=== PATIENT | male | born 1940 | race Caucasian/White ===

== ENCOUNTER 2018-10-18 09:40 | Emergency (ER) | payer MEDICARE ==
[2018-10-18] MEDS ORDERED: Diltiazem DRIP* 100 MG/100 ML ADDV.BAG IVPB ONE (10:09)
[2018-10-18] MEDS ORDERED: Diltiazem IV* 5 MG/ML 5 ML VIAL (for loading dose/IV Push) (25 MG) IV SLOW PU ONE (10:09)
--- NOTE | 2018-10-18 10:24 | ED ---
Palpitations / Dysrhythmia - HPI Summary HPI Summary: A 78 y/o male presents to [facility] with a chief complaint of having an elevated heart rate of [address] Hayes recommended that the patient come to the ED. At triage the patient rated his pain as a 0/10 in severity. The patient also states that his legs are swollen but it doesnt bother him much. He also c/ o SOB at night. He claims that sitting upright alleviates his pain. He takes bloodthinners for 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 Vital signs while in room HR: 127, O2 Sat: 97. - History of Current Complaint Chief Complaint: EDDysrhythmPalp Hx Obtained From: Patient Onset/Duration: Sudden Onset, Lasting Hours, Still Present Timing: Constant Severity Initially: Mild Severity Currently: Mild Character: Fast, Irregular Aggravating: Nothing Alleviating: Other - sitting upright Associated Signs & Symptoms: Negative - fever, Shortness of Breath - Allergy/Home Medications Allergies/Adverse Reactions: Allergies Allergy/AdvReac Type Severity Reaction Status Date / Time No Known Allergies Allergy Verified 10/18/18 09:47 Home Medications: Home Medications Metoprolol Succinate 50 mg PO BID 10/18/18 [History Confirmed 10/18/18] Pravastatin Sodium 20 mg PO BEDTIME 10/18/18 [History Confirmed 10/18/18] Warfarin Sodium 3.75 mg PO DAILY 10/18/18 [History Confirmed 10/18/18] Warfarin Sodium 7.5 mg PO DAILY 10/18/18 [History Confirmed 10/18/18] PMH/Surg Hx/FS Hx/Imm Hx Cardiovascular History: Reports: Hx Atrial Fibrillation Musculoskeletal History: Denies: Hx Rheumatoid Arthritis Sensory History: Denies: Hx Deafness - Surgical History Surgery Procedure, Year, and Place: none reported Infectious Disease History: Yes Infectious Disease History: Denies: Traveled Outside the [place] in Last 30 Days - Family History Known Family History: Positive: Other - Parkinson's - father - Social History Alcohol Use: Occasionally Substance Use Type: Reports: None Smoking Status (MU): Former Smoker Review of Systems Negative: Fever Positive: 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 Negative: Chest Pain Positive: Shortness Of Breath - at night Positive: Edema All Other Systems Reviewed And Are Negative: Yes Physical Exam - Summary Physical Exam Summary: Appearance: The patient is well-nourished in no acute distress and in no acute pain. Skin: The skin is warm and dry and skin color reflects adequate perfusion. HEENT: The head is normocephalic and atraumatic. The pupils are equal and reactive. The conjunctivae are clear and without drainage. Nares are patent and without drainage. Mouth reveals moist mucous membranes and the throat is without erythema and exudate. The external ears are intact. The ear canals are patent and without drainage. The tympanic membranes are intact. Neck: The neck is supple with full range of motion and non-tender. There are no carotid bruits. Mild JVD no HJR. Respiratory: Chest is non-tender. Lungs are clear to auscultation and breath sounds are symmetrical and equal. Cardiovascular: Heart is tachycardic and irregularly irregular. There is no murmur or rub auscultated. There is no peripheral edema and pulses are symmetrical and equal. Abdomen: The abdomen is soft and non-tender. There are normal bowel sounds heard in all four quadrants and there is no organomegaly palpated. Musculoskeletal: There is no back tenderness noted. Extremities are non-tender with full range of motion. There is good capillary refill. Pitting edema right leg Neurological: Patient is alert and oriented to person, place and time. The patient has symmetrical motor strength in all four extremities. Cranial nerves are grossly intact. Deep tendon reflexes are symmetrical and equal in all four extremities. Psychiatric: The patient has an appropriate affect and does not exhibit any anxiety or depression. Triage Information Reviewed: Yes Vital Signs On Initial Exam: Initial Vitals Temp Pulse Resp BP Pulse Ox 98.4 F 135 18 132/103 97 10/18/18 09:45 10/18/18 09:45 10/18/18 09:45 10/18/18 09:45 10/18/18 09:45 Vital Signs Reviewed: Yes Diagnostics - Vital Signs Vital Signs Temp Pulse Resp BP Pulse Ox 10/18/18 09:45 98.4 F 135 18 132/103 97 - Laboratory Result Diagrams: 10/18/18 10:46 10/18/18 10:46 Lab Statement: Any lab studies that have been ordered have been reviewed, and results considered in the medical decision making process. - EKG 09:51 Cardiac Rate: Other Rate - Atrial fibrillation at 120 bpm EKG Rhythm: Atrial Fibrillation Summary of EKG Findings: Atrial fibrillation at 120 bpm with RVR. Course/Dx - Course Course Of Treatment: Mr. Stack went to see his PCP today because he is been having a racing heart and shortness of breath. He has a long history of atrial fibrillation is on Coumadin but normally does not have an issue with shortness of breath. This been going on a couple of days now. On arrival here was placed on a monitor and noted to be in atrial fibrillation with rapid ventricular response in the 140s. He was nontoxic in appearance and clinically did not look like he was in fluid overload. He was given Cardizem with good response and placed on a drip while labs were obtained. The hospitalist service was asked to admit him. The Dr. Cool consulted and felt that he could be weaned off the Cardizem and given extra Lopressor. If he remained in a controlled rate he could be discharged. He was no longer complaining of shortness of breath when the rate was slowed down. He was successfully weaned off however he continued to get tachycardic if we walked him around. Immediately after lying back down in bed he would control his rate again. Orthostatics were performed and he was mildly orthostatic. I recommended fluids IV but the hospitalist was against it. They felt that he was safe for discharge as he was and the patient felt comfortable doing so. He is to follow closely with Dr. Carroll and to increase his Lopressor dose by half. - Diagnoses Provider Diagnoses: Atrial fibrillation with RVR - Physician Notifications Discussed Care Of Patient With: Gisel Cool Time Discussed With Above Provider: 12:36 Instructed by Provider To: MD Will See In ED - Critical Care Time Critical Care Time: 30-74 min Discharge - Sign-Out/Discharge Documenting (check all that apply): Patient Departure - DC Patient Received Moderate/Deep Sedation with Procedure: No - Discharge Plan Condition: Stable Disposition: HOME Patient Education Materials: A-fib (Atrial Fibrillation) (DC) Referrals: Jason Hayes MD [Primary Care Provider] - (2-3 days) Amrik Carroll MD [Medical Doctor] - Additional Instructions: Follow up with Dr. Carroll. Return to the ED if you experience any new or worsening symptoms. Take 1 1/2 Metoprolol instead of 1. - Billing Disposition and Condition Condition: STABLE Disposition: Home - Attestation Statements Document Initiated by Scribe: Yes Documenting Scribe: Dwain Erazo Provider For Whom Scribe is Documenting (Include Credential): Rishi Akhtar MD Scribe Attestation: I, Dwain Erazo, scribed for Rishi Akhtar MD on 10/19/18 at 1301. Scribe Documentation Reviewed: Yes Provider Attestation: The documentation as recorded by the scribe, Dwain Erazo accurately reflects the service I personally performed and the decisions made by me, Rishi Akhtar MD Status of Scribe Document: Viewed Consult Consult: At 17:00 - Discussed case with Dr. Cool, hospitalist, who recommended discharge.
[2018-10-18 10:56] LABS: ABS Basophils 0.1 10^3/ul (0-0.2); ABS Eosinophils 0.2 10^3/ul (0-0.6); ABS Lymphocytes 1.2 10^3/ul (1.0-4.8); ABS Monocytes 0.7 10^3/ul (0-0.8); ABS Neutrophils 3.9 10^3/ul (1.5-7.7); ABS Nucleated RBC 0 10^3/ul; Eosinophil % 2.5 %; Hematocrit 40 % (36-46); Hemoglobin 12.8 g/dL (14.0-18.0); Lymphocyte % 19.7 %; Mean Corpuscular HGB Conc 33 g/dL (31-36); Mean Corpuscular Hemoglobin 29 pg (27-31); Mean Corpuscular Volume 90 fL (80-94); Mean Platelet Volume 8.1 fL (7.4-10.4); Nucleated Red Blood Cells % 0; Platelet Count 158 10^3/uL (150-450); Red Blood Count 4.39 10^6 /uL (4.18-5.48); Red Cell Distribution Width 15 % (10.5-15)
[2018-10-18] MEDS ORDERED: Diltiazem IV VIAL* 125 MG in NS 0.9% 100 ML* 100 ML IVPB ONE (11:00)
[2018-10-18 11:03] LABS: INR 1.93 (0.77-1.02)
[2018-10-18 11:19] LABS: Troponin I 0.02 ng/mL (<0.04)
[2018-10-18 11:25] LABS: Albumin 4.3 g/dL (3.2-5.2); Albumin/Globulin Ratio 1.6 (1-3); BUN/Creatinine Ratio 27.3 (8-20); Calcium 9.1 mg/dL (8.6-10.3); EGFR African American 88.2 (>60); EGFR Non-African American 72.9 (>60); Globulin 2.7 g/dL (2-4); Magnesium 2.1 mg/dL (1.9-2.7); Potassium 4.6 mmol/L (3.5-5.0)
[2018-10-18 11:43] LABS: TSH (Thyroid Stimulating Horm) 4.32 mcIU/mL (0.34-5.60)
[2018-10-18] MEDS ORDERED: Metoprolol Succinate XL TAB* 50 MG PO ONE (14:21)
[2018-10-18] MEDS ORDERED: Furosemide TAB* 40 MG PO ONE (14:22)
[2018-10-18] MEDS ORDERED: NS 0.9% 1000 ML** 1,000 ML IV ONE (16:28)
[2018-10-18 17:25] VITALS: BP 142/95
--- NOTE | 2018-10-20 04:42 | CONS ---
[facility] MEDICINE CONSULTATION REPORT: DATE OF CONSULT: 10/18/18 - EMERGENCY DEPT PROVIDER: Nydia Wilder NP. ATTENDING PHYSICIAN: Dr. Akhtar in the emergency room. CONSULTING PHYSICIAN: Dr. Gisel Cool (dictated by Nydia Wilder NP). REASON FOR CONSULT: Palpitations. HISTORY OF PRESENT ILLNESS: Mr. Stack is a 78-year-old male with a past medical history significant for atrial fibrillation, BPH, and hypertension, who presented to the emergency room with complaints of shortness of breath and palpitations x1 week that was progressively getting worse. The patient reports that he felt short of breath when lying in bed and he was up most of the night and only able to sleep a few hours. He does report that he tried sleeping on 2 pillows but was unable to due to the shortness of breath, so he would sleep for a few hours in his bed and then get up and sleep in the chair or on the couch for the rest of the night due to his increased shortness of breath. The patient reports that he also felt like his heart was racing and had a heart rate of 137 at home, and so his doctor Dr. Hayes recommended that he present to the emergency room for further evaluation. PAST MEDICAL HISTORY: Significant for atrial fibrillation, BPH, hypertension. PAST SURGICAL HISTORY: Hemorrhoidectomy. MEDICATIONS: Home medications: 1. Metoprolol 50 mg p.o. b.i.d. 2. Pravastatin 20 mg p.o. at bedtime. 3. Warfarin 7.5 mg 3 days a week. 4. Warfarin 3.75 mg 4 days a week. ALLERGIES: No known drug allergies. FAMILY HISTORY: Mother with a history of unknown cardiac issues. No reported history of diabetes. Father with a history of lymphoma. SOCIAL HISTORY: The patient quit smoking. His lifetime smoking was approximately 10 years. He smoked half a pack to three-quarters of a pack a day. He does report occasional alcohol use. Denies any illicit drug use. He is retired. He is . Surrogate decision maker in the event he is unable to make his own decisions is his . He is a full code. REVIEW OF SYSTEMS: He denies any fever, chest pain, or edema. He denies any cough or hemoptysis. He does report shortness of breath, worse with lying down. He also reports nocturnal dyspnea. He denies any weight gain. Denies any nausea, vomiting, diarrhea, abdominal pain, hematuria, dysuria, focal weakness, or sensory loss. He denies any visual complaints, dysphagia, arthralgias, myalgias, rashes, lesions, psychosis, or anxiety. PHYSICAL EXAM: General: At this time, Mr. Stack is resting comfortably on the stretcher. He is in no acute distress. He is alert and oriented x3. Speech is clear. HEENT: Head is atraumatic, normocephalic. Eyes: EOMs are intact. Sclerae anicteric and not pale. Oral mucosa appears to be moist. Neck is supple. There is no JVD. Lungs are diminished in the bases bilaterally. No wheezes, rales, or rhonchi. Cardiac: S1, S2. Irregular rate and rhythm. No murmurs, rubs, or gallops. Abdomen: Soft and nontender. Bowel sounds are present x4. Extremities: He has some mild 1+ pitting edema noted to his bilateral lower extremities. Neurologic: He is awake, alert, and oriented x3. His speech is clear. Thought processes are intact. There are no gross focal deficits noted. Skin is intact. DIAGNOSTIC STUDIES/LAB DATA: WBCs are 6.0, RBCs 4.39, hemoglobin 12.8, hematocrit 40, platelet count 158. INR was 1.93. Sodium 136, potassium 4.6, chloride 104, carbon dioxide was 25, anion gap 7, BUN was 27, creatinine 0.99. Glucose 87, lactic acid was 1.1, calcium 9.1, magnesium 2.1, bilirubin is 1.0. ASTs were 46, ALTs were 40, alkaline phosphatase was 181. Troponin 0.02. BNP was 1079. TSH was 4.32. The patient had a chest x-ray, radiologist Impression: COPD, small right pleural effusion. He had an electrocardiogram which showed atrial fibrillation and a rate of 120 on admission. IMPRESSION AND PLAN: Mr. Stack is a 78-year-old male with past medical history significant for hyperlipidemia, hypertension, BPH, high cholesterol, and atrial fibrillation, who presented to the emergency room with complaints of palpitations and shortness of breath, found to be in rapid 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 PLAN/RECOMMENDATIONS: Our recommendations are as follows: 1. Atrial fibrillation with rapid ventricular response. The patient did have a Cardizem bolus and Cardizem IV drip in the emergency room. We did get him an extra dose of metoprolol 25 mg. I would recommend that we increase his metoprolol dosing to 75 mg p.o. b.i.d. He should follow up with his primary care provider and Cardiology within 1 week for further recommendations on rate control for his 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 2. Hyperlipidemia. He should continue on pravastatin as previously prescribed. 3. Hypertension. He should continue on metoprolol as prescribed. 4. Atrial fibrillation. The patient should continue on warfarin as previously prescribed. 5. Mild lower extremity edema. The patient did receive 40 mg of Lasix in the emergency room. The patient was instructed to return to the emergency room for any chest pain, shortness of breath, any other concerning symptoms, and his verbalized understanding. I have discussed this with my attending Dr. Gisel Cool. She is in agreement with my plan. I have discussed this with Dr. Akhtar, who will discharge the patient from the emergency room. 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 NYDIA WILDER, PETE [id number]/[facility] #: [id number] VIANEY
== END 2018-10-18 17:24 | disposition home or self-care (01) ==
LOC: ED 09:40
DX: I48.0 Paroxysmal atrial fibrillation (principal); Z79.01 Long term (current) use of anticoagulants; J44.9 Chronic obstructive pulmonary disease, unspecified; J90 Pleural effusion, not elsewhere classified; R06.02 Shortness of breath; R60.0 Localized edema; E78.5 Hyperlipidemia, unspecified; I10 Essential (primary) hypertension; N40.0 Benign prostatic hyperplasia without lower urinary tract symptoms; Z87.891 Personal history of nicotine dependence
CPT/HCPCS: 36415; 71046; 80053; 83605; 83735; 83880; 84443; 84484; 85025; 85610; 93005; 96374; 96375; 99283; A9270-GY

== ENCOUNTER 2019-09-12 11:20 | Emergency (ER) | payer MEDICARE ==
--- OUTSIDE RECORDS SUMMARY | 2019-09-12 11:44 | XMS REPORT | Summary of Care ---
:1940 Author Organization [facility] Address [address] [place] [address] Care Team Providers Name Role Phone Jason Hayes MD Primary Care Provider Reason for Visit Reason Comments Follow-up Encounter Details Date Type Department Care Team Description 08/05/2019 Office Visit Hematology Oncology Coco Mcdaniel Renal carcinoma, right [address] [facility] GERMÁN Murphy (Primary Dx) [place], [place] [address] [facility] [address] [place], [place] [phone] [id number] [phone] Allergies Active Allergy Reactions Severity Noted Date Comments Dipyridamole Rash Low 06/18/2019 documented as of this encounter (statuses as of 08/06/2019) Medications Medication Sig Dispensed Refills Start Date End Date Status Warfarin Sodium 7.5 Take 7.5 mg by 0 Active MG Oral Tablet mouth Takes 7.5mg (COUMADIN) Monday and and every other day he takes a half a tablet Pravastatin Sodium 20 Take 20 mg by mouth 0 04/11/2019 Active MG Oral Tablet daily (PRAVACHOL) Metoprolol Succinate TAKE 2 TABLETS BY 0 05/27/2019 Active ER 50 MG Oral Tablet MOUTH TWICE DAILY Extended Release 24 Hour (TOPROL-XL) Digoxin 125 MCG Oral TAKE 1 TABLET BY 0 05/09/2019 Active Tablet (LANOXIN) MOUTH ON Monday AND MONDAY. TAKE 2 TABLETS ON Monday AND MONDAY predniSONE 10 MG Oral TAKE 4 TABLETS BY 0 03/11/2019 Active Tablet (DELTASONE) MOUTH ONCE DAILY FOR 2 DAYS THEN 3 TABS DAILY Multiple Take by mouth daily 0 Active Vitamins-Minerals (VISION-RENEE PRESERVE PO) Furosemide 20 MG Oral Take 20 mg by mouth daily 1.5 pills on Monday, Monday and Monday 0 Active Tablet (LASIX) 1 pill on , , Monday and Monday Latanoprost 0.005 % 1 drop nightly 0 Active Ophthalmic Solution (XALATAN) documented as of this encounter (statuses as of 08/06/2019) Active Problems Problem Noted Date Renal carcinoma, right Cancer Staging: Clinical: Stage IV (cT1b, cNX, cM1) - Signed by Brandon Titus DO on 07/19/2019 documented as of this encounter (statuses as of 08/06/2019) Social History Tobacco Use Types Packs/Day Years Used Date Former Smoker 0 Quit: 06/18/1970 Smokeless Tobacco: Never Used Alcohol Use Drinks/Week oz/Week Comments Yes socially Sex Assigned at Date Recorded Not on file Job Start Date Occupation Industry Not on file Not on file Not on file Travel History Travel Start Travel End No recent travel history available. documented as of this encounter Last Filed Vital Signs Vital Sign Reading Time Taken Comments Blood Pressure 124/71 08/05/2019 2:28 PM EST Pulse 64 08/05/2019 2:28 PM EST Temperature 36.9 08/05/2019 2:28 PM EST C (98.4 F) Respiratory Rate 16 08/05/2019 2:28 PM EST Oxygen Saturation 95% 08/05/2019 2:28 PM EST Inhaled Oxygen Concentration - - Weight 83.1 kg (183 lb 3.2 oz) 08/05/2019 10:29 AM EST Height - - Body Mass Index 27.86 07/11/2019 7:00 AM EST documented in this encounter Progress Notes Coco Mcdaniel PA - 08/05/2019 10:15 AM EST Hematology/Oncology Follow Up Note Diagnosis: 1. Renal carcinoma, right Date of Cancer Diagnosis: 07/11/19 Cancer Stage Renal carcinoma, right, Clinical: Stage IV (cT1b, cNX, cM1) Past Treatment: None Current Treatment: Treatment Goal: Palliative Plan Name: OP ADVANCED RENAL CELL OR COLORECTAL (MSI) NIVOLUMAB IPILIMUMAB Status: Active Start Date: 08/05/2019 End Date: 08/03/2020 (Planned) Provider: Leah Reyna MD Chemotherapy: ipilimumab (YERVOY) 83 mg in sodium chloride 0.9 % chemo infusion , 1 mg/kg = 83 mg, Intravenous, Once, 1 of 4 cycles Administration: 83 mg (08/05/2019) nivolumab (OPDIVO) 249 mg in sodium chloride 0.9 % 100 mL chemo infusion, 3 mg/ kg = 249 mg, Intravenous, Once, 1 of 25 cycles Administration: 249 mg (08/05/2019) ECOG Performance Status: 0- Fully active, able to carry on all pre-disease performance without restriction Oncologic History: Oncologic History Aguilar Stack is a 79 y.o. male who was referred by Dr. Rodriguez to discuss systemic management of newly diagnosed stage IV renal cell carcinoma. The patient has a history of polymyalgia rheumatica and has been on long-term prednisone therapy. His publications manager ordered an abdominal ultrasound to assess his liver at which time a right renal mass was observed. The patient has not had any weight loss or abdominal pain or other concerning systemic symptoms. A CT of the chest, abdomen, and pelvis was performed, which identified mediastinal lung nodules and adenopathies suspicious for metastatic disease. The patient's right renal mass measures 5.6 x 4 x 5.6 on MRI from 06/26/2019, and there was some initial concern of a right renal vein thrombosis, but this is not the case. He has bilateral adrenal metastases. The patient is in good physical condition and has an ECOG score of a 0 and hikes in his backyard. He takes warfarin daily for chronic 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 The rest of his medical problems and associated medications are in the electronic medical record. He met with Dr. Reyna on 07/19/19 to discuss in detail the different options available for treatment of intermediate risk De Stephan metastatic renal carcinoma. We provided him information on the COSMIC trial assess the utility of Cabozantonib added to Ipi/Nivo. The patientwas not interested in pursuing additional testing to assessing eligibility for the trial and it would require he transition from Coumadin to LMWH. He has elected to proceed with first line Ipilimumab and Nivolumab for intermediate risk RCC. We discussed the risks vs benefits of pursuing treatment with immunotherapy. Interim History: Patient presents today for cycle 1. He has no concerns or complaints today. He is feeling fine. Denies any pain, fevers, chills, recent cold like symptoms, CP , SOB, cough, abdominal pain, n/v/d, urinary sx or rashes. Subjective: Past Medical History: Diagnosis Date Arrhythmia Arthritis Atrial fibrillation, chronic Cataract Glaucoma Hyperlipidemia Hypertension Night vision loss PMR (polymyalgia rheumatica) Renal mass Family and Social History Aguilar Stack family history includes Other in his mother; Parkinsonism in his father. He reports that he quit smoking about 49 years ago. He smoked 0.00 packs per day. He has never used smokeless tobacco. He reports current alcohol use. He reports that he does not use drugs. Medications and Allergies Allergies Allergen Reactions Dipyridamole Rash Current Outpatient Medications on File Prior to Visit Medication Sig Dispense Refill Digoxin 125 MCG Oral Tablet (LANOXIN) TAKE 1 TABLET BY MOUTH ON Monday AND MONDAY. TAKE 2 TABLETS ON Monday AND MONDAY Furosemide 20 MG Oral Tablet (LASIX) Take 20 mg by mouth daily 1.5 pills on Monday, Mondayand Monday 1 pill on , , Monday and Monday Latanoprost 0.005 % Ophthalmic Solution (XALATAN) 1 drop nightly Metoprolol Succinate ER 50 MG Oral Tablet Extended Release 24 Hour ( TOPROL-XL) TAKE 2 TABLETSBY MOUTH TWICE DAILY Multiple Vitamins-Minerals (VISION-RENEE PRESERVE PO) Take by mouth daily Pravastatin Sodium 20 MG Oral Tablet (PRAVACHOL) Take 20 mg by mouth daily predniSONE 10 MG Oral Tablet (DELTASONE) TAKE 4 TABLETS BY MOUTH ONCE DAILY FOR 2 DAYS THEN 3TABS DAILY Warfarin Sodium 7.5 MG Oral Tablet (COUMADIN) Take 7.5 mg by mouth Takes 7.5mg Monday and and every other day he takes a half a tablet No current facility-administered medications on file prior to visit. Review of Systems Constitutional: Negative for activity change, appetite change, chills, diaphoresis, fatigue and fever. HENT: Negative for congestion, ear pain, postnasal drip, rhinorrhea and sore throat. Eyes: Negative for photophobia, pain, redness and visual disturbance. Respiratory: Negative for cough, shortness of breath, wheezing and stridor. Cardiovascular: Negative for chest pain, palpitations and leg swelling. Gastrointestinal: Negative for abdominal pain, blood in stool, constipation, diarrhea, nausea and vomiting. Genitourinary: Negative for dysuria, frequency, hematuria and urgency. Musculoskeletal: Negative for back pain, gait problem and neck pain. Skin: Negative for color change and rash. Neurological: Negative for dizziness, syncope, weakness, light-headedness, numbness and headaches. Objective: Vitals: Vitals - 1 value per visit 07/11/2019 07/19/2019 08/05/2019 SYSTOLIC 131 157 124 DIASTOLIC 73 91 71 PULSE 78 85 64 TEMPERATURE 97.7 97.4 98.4 RESPIRATIONS 17 16 16 Weight (kg) 79.379 kg 82.827 kg 83.099 kg HEIGHT 172.7 cm - - SPO2 96 97 95 BODY MASS INDEX 26.61 kg/m2 27.76 kg/m2 27.86 kg/m2 PAIN SCALE - SCORE 0 0 0 Physical Exam Vitals signs reviewed. Constitutional: General: He is not in acute distress. Appearance: Normal appearance. HENT: Head: Normocephalic and atraumatic. Mouth/Throat: Mouth: Mucous membranes are moist. Eyes: General: No scleral icterus. Extraocular Movements: Extraocular movements intact. Pupils: Pupils are equal, round, and reactive to light. Neck: Musculoskeletal: Normal range of motion and neck supple. Cardiovascular: Rate and Rhythm: Normal rate and regular rhythm. Heart sounds: No murmur. Pulmonary: Effort: Pulmonary effort is normal. No respiratory distress. Breath sounds: Normal breath sounds. No stridor. No wheezing or rhonchi. Abdominal: General: Bowel sounds are normal. There is no distension. Palpations: Abdomen is soft. Tenderness: There is no abdominal tenderness. Musculoskeletal: Normal range of motion. Right lower leg: No edema. Left lower leg: No edema. Skin: General: Skin is warm and dry. Neurological: General: No focal deficit present. Mental Status: He is alert and oriented to person, place, and time. Psychiatric: Behavior: Behavior normal. Imaging IR Imaging Guided Needle, Drain Procedure Result Date: 07/12/2019 IMPRESSION: Successful and uncomplicated ultrasound guided right renal mass biopsy. MRI Brain 06/26/19: IMPRESSION: 1. No definite the enhancing lesion to suggest brain metastasis. 2. Focal hemosiderin deposition due to remote hemorrhage in the right occipital lobe. 3. No acute intracranial abnormality is seen. There are areas of nonspecific small vessel ischemic disease and generalized volume loss. MR angiogram with and without contrast of the abdomen and pelvis 06/26/19: IMPRESSION: No evidence of abdominal aortic aneurysm. 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 This is associated with a mass in the right renal pelvis which may be slightly increased in size since the previous study. This is consistent with the patient's history for renal cell carcinoma. No evidence of thrombus within the main right renal vein. Nonenhancing hemorrhagic or proteinaceous cyst on the left kidney. Bosniak 2. Left adrenal mass not significantly changed in size since previous study. However it it is not fullycharacterized on this study as described above. CT chest 06/05/19: IMRESSION: Given the clinical context the lung nodules and mediastinal lymphadenopathy are suspicious for metastatic disease. Bone Scan 06/25/19: IMPRESSION: No evidence of osteoblastic metastatic bone disease. Pathology Reviewed: Lab Results Component Value Date SURGPATH 07/11/2019 Collection Date: 07/11/2019 09:17 Received Date: 07/11/2019 09:52 Specimen(s) Received A: Right renal biopsy central B: Right peripheral renal biopsy Diagnosis A,B) KIDNEY, RIGHT CENTRAL AND RIGHT PERIPHERAL, BIOPSIES: RENAL CELL CARCINOMA (See Microscopic Description). Lab Review Office Visit on 08/05/2019 Component Date Value Ref Range Status White Blood Cell 08/05/2019 8.3 4 - 10 10*3/uL Final Red Blood Cell 08/05/2019 4.34* 4.6 - 6.1 10*6/uL Final Hemoglobin 08/05/2019 13.3* 13.5 - 18 g/dL Final Hematocrit 08/05/2019 40.5* 41 - 53 % Final Mean Cell Volume 08/05/2019 93.3 80 - 96 fL Final Mean Cell Hemoglobin 08/05/2019 30.7 27 - 33 pg Final Mean Cell Hgb Conc 08/05/2019 32.9 32.0 - 36.0 g/dL Final Red Cell Dist Width 08/05/2019 14.5 11.5 - 14.5 % Final Platelet Count 08/05/2019 168 150 - 400 10*3/uL Final Differential Type 08/05/2019 Automated Diff Final Neutrophil 08/05/2019 82 % Final Lymphocyte 08/05/2019 9 % Final Monocyte 08/05/2019 6 % Final Eosinophil 08/05/2019 2 % Final Basophil 08/05/2019 1 % Final Abs Neutrophil 08/05/2019 6.77 1.8 - 7.0 10*3/uL Final Abs Lymphocyte 08/05/2019 0.78* 1.2 - 4.0 10*3/uL Final Abs Monocyte 08/05/2019 0.51 0 - 0.8 10*3/uL Final Abs Eosinophil 08/05/2019 0.19 0 - 0.5 10*3/uL Final Abs Basophil 08/05/2019 0.05 0 - 0.2 10*3/uL Final Nucleated Red Blood Cells 08/05/2019 0 0 - 0 /100 Final Albumin 08/05/2019 4.1 3.5 - 5.2 g/dL Final Bilirubin, Total 08/05/2019 0.5 <1.2 mg/dL Final Calcium 08/05/2019 8.7* 8.8 - 10.2 mg/dL Final Chloride 08/05/2019 103 98 - 107 mmol/L Final Creatinine 08/05/2019 0.97 0.70 - 1.20 mg/dL Final Glucose 08/05/2019 98 70 - 140 mg/dL Final Alkaline Phosphatase 08/05/2019 85 40 - 129 U/L Final Potassium 08/05/2019 4.3 3.4 - 5.1 mmol/L Final Total Protein 08/05/2019 6.7 6.4 - 8.3 g/dL Final Sodium 08/05/2019 142 136 - 145 mmol/L Final AST/SGO 08/05/2019 24 <40 U/L Final Blood Urea Nitrogen 08/05/2019 21 8 - 23 mg/dL Final Osmolality, Adolfo 08/05/2019 296 275 - 300 mosm/kg Final BUN/Cre Ratio 08/05/2019 22 Final Bicarbonate 08/05/2019 24 22 - 29 mmol/L Final ALT/SGP 08/05/2019 23 <41 U/L Final Anion Gap 08/05/2019 15 8 - 15 mmol/L Final A/G Ratio 08/05/2019 1.6 Final GFR Non 2008 CDK-* 08/05/2019 eGFR is not calculated in patients <18 or >80 years of age. >60 mL/min/1.73m2 Final GFR 2008 CKD-EPI 08/05/2019 eGFR is not calculated in patients <18 or >80 years of age. >60 mL/min/1.73m2 Final TSH 08/05/2019 2.680 0.270 - 4.200 u[IU]/mL Final Tumor Markers No results found for: AFP, B2M, HCGTUT, BCRABLQUANT, CA153, LC3020, CGAGR, CA125 , CA199, CEA, ESTD, FSH, PSATOTAL, TG, CA153 Assessment: Aguilar Stack is a 79 year old male with stage IV RCC who presents today for cycle 1 Opdivo/yervoy. He has no concerns or complaints. 1. Stage IV RCC - CBC, CMP and TSH, stable. - Will proceed with cycle 1 - Adverse effects reviewed with patient and what to call office for in terms of symptoms - Patient verbally understands and agrees to do so. Plan: Aguilar Stack should return in 3 weeks for OV, labs and cycle 2 opdivo/ yervoy. Imaging prior to return to clinic?: no Labs on return to clinic? yes Medication changes? no Opioid induced constipation? no Meds reconciled? yes Referrals needed? There are no social work or other referral needs at this time. Patient was advised to notify office immediately with any concerns, worsening symptoms or new symptoms. Aware of 24 hour second shift supervisor service. All questions and concerns were answered and addressed to the best of my knowledge. Certain parts of this note may have been carried over from prior hematology/ oncology notes to maintain accuracy of patient pertinent medical history and continuity of care. The details were verified and edited as appropriate. GERMÁN Traylor Hematology/Oncology [phone] signed by GERMÁN Figueroa at 08/06/2019 4:30 PM ESTdocumented in this encounter Plan of Treatment Date Type Specialty Care Team Description 08/30/2019 Office Visit Hematology and Oncology Leah Reyna MD [address] [place] [address] 09/20/2019 Office Visit Hematology and Oncology Leah Reyna MD [address], [place] [id number] 10/11/2019 Office Visit Hematology and Oncology Leah Reyna MD [address] [place] [address] [phone] Health Maintenance Due Date Last Done Comments MMR Vaccines (1 of 1 - Standard 1940 series) Varicella Vaccines (1 of 2 - 1940 2-dose childhood series) DTaP,Tdap,and Td Vaccines (1 - 1946 Tdap) Zoster Vaccines (1 of 2) 1989 Pneumococcal Vaccine: 65+ Years (1 2004 of 2 - PCV13) Influenza Vaccine 04/30/2019 HIB Vaccines Aged Out No longer eligible based on patient's age to complete this topic Hepatitis A Vaccines Aged Out No longer eligible based on patient's age to complete this topic Hepatitis B Vaccines Aged Out No longer eligible based on patient's age to complete this topic IPV Vaccines Aged Out No longer eligible based on patient's age to complete this topic Pneumococcal Vaccine: Pediatrics Aged Out No longer eligible based on (0 to 5 Years) and At-Risk patient's age to complete this Patients (6 to 64 Years) topic documented as of this encounter Procedures Procedure Name Priority Date/Time Associated Comments Diagnosis CBC AND DIFFERENTIAL STAT 08/05/2019 10:34 Renal carcinoma, Results for this AM EST right procedure are in the results section. TSH Routine 08/05/2019 10:34 Renal carcinoma, Results for this AM EST right procedure are in the results section. COMPREHENSIVE STAT 08/05/2019 10:34 Renal carcinoma, Results for this METABOLIC PANEL AM EST right procedure are in the results section. documented in this encounter Results TSH (08/05/2019 10:34 AM EST) TSH 2.680 0.270 - 4.200 u[IU]/mL [facility] Pathology Specimen Plasma Performing Organization Address City/State/Zipcode Phone Number [facility] [address] [place] [address] [facility] [address] [place] [address] Pathology Comprehensive metabolic panel (08/05/2019 10:34 AM EST) Albumin 4.1 3.5 - 5.2 [facility] g/dL [facility] Path[facility] Bilirubin, Total 0.5 <1.2 mg/dL [facility] Pathology Calcium 8.7 (L) 8.8 - 10.2 [facility] mg/dL [facility] Chloride 103 98 - 107 [facility] mmol/L [facility] Pathology Creatinine 0.97 0.70 - 1.20 [facility] mg/dL [facility] Glucose 98 70 - 140 [facility] mg/dL [facility] Pathology Alkaline 85 40 - 129 U/L [facility] Phosphatase [facility] Potassium 4.3 3.4 - 5.1 [facility] mmol/L [facility] Pathology Total Protein 6.7 6.4 - 8.3 [facility] g/dL [facility] Pathology Sodium 142 136 - 145 [facility] mmol/L [facility] Pathology AST/SGO 24 <40 U/L [facility] Pathology Blood Urea Nitrogen 21 8 - 23 mg/dL [facility] Pathology Osmolality, Adolfo 296 275 - 300 [facility] mosm/kg [facility] Pathology BUN/Cre Ratio 22 [facility] Bicarbonate 24 22 - 29 [facility] mmol/L [facility] Pathology ALT/SGP 23 <41 U/L [facility]ology Anion Gap 15 8 - 15 mmol/L [facility]ology A/G Ratio 1.6 [facility] Pathology GFR Non eGFR is not >60 [facility] 2008 calculated in mL/min/1.73m2 [facility] CDK-EPI patients <18 or Pathology >80 years of age. GFR eGFR is not >60 [facility] 2008 calculated in mL/min/1.73m2 [facility] CKD-EPI patients <18 or Pathology >80 years of age. Specimen Plasma Performing Organization Address City/State/Zipcode Phone Number [facility] [address] [place] [address] [facility] [address] [place] [address] Pathology CBC and differential (08/05/2019 10:34 AM EST) White Blood Cell 8.3 4 - 10 [facility] 10*3/uL [facility] Pathology Red Blood Cell 4.34 (L) 4.6 - 6.1 [facility] 10*6/uL [facility] Pathology Hemoglobin 13.3 (L) 13.5 - 18 [facility] g/dL [facility] Pathology Hematocrit 40.5 (L) 41 - 53 % [facility] Mean Cell Volume 93.3 80 - 96 fL [facility] Mean Cell Hemoglobin 30.7 27 - 33 pg [facility] Mean Cell Hgb Conc 32.9 32.0 - 36.0 [facility] g/dL [facility] Pathology Red Cell Dist Width 14.5 11.5 - 14.5 % [facility] Platelet Count 168 150 - 400 [facility] 10*3/uL [facility] Pathology Differential Type Automated Diff [facility] Neutrophil 82 % [facility] Lymphocyte 9 % [facility] Monocyte 6 % [facility] Eosinophil 2 % [facility] Basophil 1 % [facility] Abs Neutrophil 6.77 1.8 - 7.0 [facility] 10*3/uL [facility] Abs Lymphocyte 0.78 (L) 1.2 - 4.0 [facility] 10*3/uL [facility] Abs Monocyte 0.51 0 - 0.8 [facility] 10*3/uL [facility] Abs Eosinophil 0.19 0 - 0.5 [facility] 10*3/uL [facility] Abs Basophil 0.05 0 - 0.2 [facility] 10*3/uL [facility] Nucleated Red Blood 0 0 - 0 [facility] Cells /100{WBCs} [facility] Specimen EDTA Whole Blood Performing Organization Address City/State/Zipcode Phone Number [facility] [address] [place] [address] [phone] [facility] [address] [place] [address] Pathology documented in this encounter Visit Diagnoses Diagnosis Renal carcinoma, right - Primary documented in this encounter Administered Medications Medication Order MAR Action Action Date Dose Rate Site ipilimumab (YERVOY) 83 mg in Rate/Dose Verify 08/05/2019 1:37 PM 100 mL/ hr sodium chloride 0.9 % chemo EST infusion 83 mg (rounded from 83.1 mg = 1 mg/kg 83.1 kg), Intravenous, Administer over 30 Minutes, Once, 08/05/19 at 1230, For 1 dose, Start 30 minutes after completion of Nivolumab. Administer via Taxol set. Flush with NS or D5. Final concentration 1-2 mg/mL., New Bag 08/05/2019 1:34 PM EST 83 mg 100 mL/hr nivolumab (OPDIVO) 249 mg in Rate/Dose Verify 08/05/2019 12:22 PM EST 200 mL/hr sodium chloride 0.9 % 100 mL chemo infusion 249 mg (rounded from 249.3 mg = 3 mg/kg 83.1 kg), Intravenous, Administer over 30 Minutes, Once, 08/05/19 at 1130, For 1 dose New Bag 08/05/2019 12:20 PM EST 249 mg 200 mL/hr documented in this encounter
--- OUTSIDE RECORDS SUMMARY | 2019-09-12 11:44 | XMS REPORT | Summary of Care ---
:1940 Author Organization [facility] Address [address] [place] [address] Care Team Providers Name Role Phone Jason Hayes MD Primary Care Provider Reason for Visit Reason Comments New Patient Renal carcinoma Encounter Details Date Type Department Care Team Description 07/19/2019 Office Visit Hematology Oncology Leah Reyna MD Renal carcinoma, right [address] [facility] [address] [facility] (Primary Dx) [place] [id number] Allergies Active Allergy Reactions Severity Noted Date Comments Dipyridamole Rash Low 06/18/2019 documented as of this encounter (statuses as of 07/23/2019) Medications Medication Sig Dispensed Refills Start Date End Date Status Warfarin Sodium 7.5 Take 7.5 mg by 0 Active MG Oral Tablet mouth (COUMADIN) Pravastatin Sodium 20 Take 20 mg by [...] pill on , , Monday and Monday documented as of this encounter (statuses as of 07/23/2019) Active Problems Problem Noted Date Renal carcinoma, right Cancer Staging: Clinical: Stage IV (cT1b, cNX, cM1) - Signed by Brandon Titus DO on 07/19/2019 documented as of this encounter (statuses as of 07/23/2019) Social History Tobacco Use Types Packs/Day Years [...] Sign Reading Time Taken Comments Blood Pressure 157/91 07/19/2019 11:29 took bp meds, new pt- AM EST told rn luna Pulse 85 07/19/2019 11:29 AM EST Temperature 36.3 07/19/2019 11:29 C (97.4 AM EST F) Respiratory Rate 16 07/19/2019 11:29 AM EST Oxygen Saturation 97% 07/19/2019 11:29 ra AM EST Inhaled Oxygen - - Concentration Weight 82.8 kg (182 lb 9.6 07/19/2019 11:29 oz) AM EST Height - - Body Mass Index 27.76 07/11/2019 7:00 AM EST documented in this encounter Progress Notes Leah Reyna MD - 07/19/2019 11:30 AM EST I saw and evaluated the patient Aguilar Stack with Dr. Titus. Discussed with him and agree with his findings and plans as written, along with any supplemental dictated and/or attending documentation in the patient record by myself. The treatment plan was discussed with the patient. Previous Oncologic History, Diagnosis and stage: June 05, 2019-CAT scan of the chest abdomen and pelvis revealed- LUNG: Multiple bilateral pulmonary nodules with fuels sales representative dominant 1.3 cm nodule at the suprahilar central aspect of the RIGHT upper lobe reference image 31. Biological Chemist 0.7 cm nodule at the anterior segment of the LEFT upper lobe reference image 36. Negative for pleural effusions. MEDIASTINUM / AXILLA: Extensive mediastinal and bilateral hilar lymphadenopathy. Biological Chemist 2.5 x 3.0 cm precarinal lymph node and 2.5 x 3.4 cm LEFT suprahilar lymph node. Biological Chemist 3.6 x 3.6 cm RIGHT infrahilar lymph node and 2.2 x 2.8 cm LEFT infrahilar lymph node. Negative for cardiomegaly or pericardial effusion. Mild atherosclerotic plaque at normal diameter abdominal aorta. 5.4 x 3.8 x 4.4 cm heterogeneously enhancing solid mass at the mid to superior pole of the RIGHT kidney. Strong suggestion of contiguous enhancing tumor thrombus extending from the RIGHT renal mass to the RIGHT renal vein and extending to the confluence with the IVC. June 18, 2019-evaluated by urology for the incidental finding of the 5.4 cm right renal mass with ? right renal vein tumor thrombus invasion June 25, 2019-bone scan showed no evidence of distant disease June 26, 2019-MRI of the brain is negative for metastasis June 26, 2019-MRI abdomen showed Right renal mass, no thrombus- there is a enhancing mass withinthe renal pelvis which extends exophytically from the posterior aspect of the right kidney. It measures 5.6 x 4 x 5.6 cm. This mass was present on the previous CT scan when it measured 6.1 x 3.6 x 4.6 cm- second mass versus a prominent lobulation of the primary lesion is present on the midpole of the right kidney measuring 2.5 x2.3 cm and demonstrates enhancement Case was discussed In the tumor board- and suggested that there is proceed July 11, 2019-right renal biopsy showed renal cell carcinoma, clear cell ECOG Performance Status: (1) Restricted in physically strenuous activity, ambulatory and able to do work of light nature Assessment/Plan- Aguilar is a 78-year-old male with a past medical history significant for hypertension, a true fibrillation on Coumadin and a new diagnosis of metastatic , 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 I met with him his daughter, his and his sister at length today at the office. We discussed about the various modalities and drug treatments over the course of the last 20 years for the treatment of metastatic and also carcinoma. I discussed about theSutent, followed by combination immunotherapy followed by immunotherapy with TK I and the clinical trial COSMIC - WHICH IS A RANDOMIZATION BUT IN COMBINATION IMMUNOTHERAPY WITH OR WITHOUT TKI. WE DISCUSSED in DETAILS ABOUT THE SIDE EFFECTS OF ALL THE TREATMENTS INVOLVED. WE GAVE THEM INFORMED CONSENT ABOUT THE COSMIC CLINICAL TRIAL. Patient is not interested in repeating the scans to be eligible for the clinical trial. He would like to proceed with the dual immunotherapy. We provided him the therapy teaching and consent today. He would like to start after the new year. I discussed in details about the side effects of the therapy as mentioned below. Patient's current issues of RCC is getting tt as above and additional work up as mentioned below arepursued. I personally reviewed relevant history pertinent labs, medicines, imaging ( CT, ultrasound). I personally reviewed the films and discussed with radiologist and old records from urology . Old records were requested. Adverse effects and risks of immunotherapy was discussed at length in layman terms including but notlimited to autoimmune conditions like colitis, thyroiditis, pneumonitis, adrenalitis, nephritis, hepatitis, rashes, and increased likelihood of infections which can even be serious and fatal rarely. Wereiterated once again the palliative intent of any future systemic therapy to ameliorate cancer related symptoms as well as prolong survival in setting of ultimately incurable disease. Formal chemo teaching completed and signed consent obtained at this visit. Chemotherapy consent- taken today for Ipi/Nivo Orders Placed This Encounter CBC and differential Standing Status: Future Number of Occurrences: 1 Standing Expiration Date: 01/18/2020 Comprehensive Metabolic Panel Standing Status: Future Number of Occurrences: 1 Standing Expiration Date: 01/19/2020 TSH Standing Status: Future Number of Occurrences: 1 Standing Expiration Date: 01/19/2020 Cortisol Standing Status: Future Number of Occurrences: 1 Standing Expiration Date: 01/18/2020 Lactate dehydrogenase Standing Status: Future Number of Occurrences: 1 Standing Expiration Date: 01/18/2020 I spent 60 minutes face to face with patient today, more than half of which was spent on counseling about diagnosis, coping with diagnosis, treatment plan, immunotherapy, side effects from it, other treatment options, palliative services referral, need for supportive measures during the treatment and coordination of care regarding the above assessment and plan. Informed patient if he develops any problems or issues prior to rtc then he should give our office acall in addition we have a 24 hour conditioner tumbler service. Patient was agreeable with plan of care. Also patient and patient did ask questions which were answered to their satisfaction and to the best of our knowledge. Leah Reyna MD Pager - Breast Surgeon Department of Hematology Oncology [facility] 07/19/2019 2:25 PM Brandon Jose, - 07/19/2019 11:30 AM EST [facility] Outpatient Clinic Note Patient Name: Aguilar Stack Date of : 1940 Medical Record: [id number] Primary Care Provider: Jason Hayes MD Subjective Reason for Visit: New Patient (Renal carcinoma) Diagnosis: Stage IV RCC; right Current Treatment: OP ADVANCED RENAL CELL OR COLORECTAL (MSI) NIVOLUMAB IPILIMUMAB Previous Treatment: none History of Illness: Aguilar Stack is a 78 y.o. male who was referred by Dr. Rodriguez to discuss systemic management of newly diagnosed stage IV renal cell carcinoma. The patient has a history of polymyalgia rheumatica and has been on long-term prednisone therapy. His incinerator attendant ordered an abdominal ultrasound to assess his [...] medications are in the electronic medical record. We discussed in detail the different options available for treatment of intermediate risk [place] metastatic renal carcinoma. Performance Status: ECO- Fully active, able to carry on all pre-disease performance without restriction Past Medical History: He has a past medical history of Arrhythmia, Arthritis, Atrial fibrillation, chronic, Cataract, Glaucoma, Hyperlipidemia, Hypertension, Night vision loss, and Renal mass. Past Surgical History: He has a past surgical history that includes Vasectomy (1971) and hemorroids. Allergies Allergen Reactions Dipyridamole Rash Home Medications Medication Sig Digoxin 125 MCG Oral Tablet (LANOXIN) TAKE 1 TABLET BY MOUTH ON Monday AND MONDAY. TAKE 2 TABLETS ON Monday AND MONDAY Furosemide 20 MG Oral Tablet (LASIX) Take 20 mg by mouth daily 1.5 pills on Monday, Monday and Monday 1 pill on , , Monday and Monday Metoprolol Succinate ER 50 MG Oral Tablet Extended Release 24 Hour (TOPROL-XL) TAKE 2 TABLETS BY MOUTH TWICE DAILY Multiple Vitamins-Minerals (VISION-RENEE PRESERVE PO) Take by mouth daily Pravastatin Sodium 20 MG Oral Tablet (PRAVACHOL) Take 20 mg by mouth daily predniSONE 10 MG Oral Tablet (DELTASONE) TAKE 4 TABLETS BY MOUTH ONCE DAILY FOR 2 DAYS THEN 3 TABS DAILY Warfarin Sodium 7.5 MG Oral Tablet (COUMADIN) Take 7.5 mg by mouth Social History: He reports that he quit smoking about 49 years ago. He smoked 0.00 packs per day. He has never used smokeless tobacco. He reports current alcohol use. He reports that he does not use drugs. Family History Problem Relation Age of Onset Parkinsonism Father Other Mother Lymphoma Review of Systems Constitutional: Negative for chills, fatigue, fever and unexpected weight change. HENT: Negative for hearing loss and nosebleeds. Eyes: Negative. Respiratory: Negative for chest tightness and shortness of breath. Cardiovascular: Negative for chest pain and leg swelling. Gastrointestinal: Negative for abdominal pain, blood in stool, diarrhea, nausea and vomiting. Endocrine: Negative. Genitourinary: Negative for dysuria and hematuria. Musculoskeletal: Negative for back pain. Skin: Negative. Neurological: Negative for dizziness and headaches. Psychiatric/Behavioral: Negative. All other systems reviewed and are negative. Objective Physical Examination: BP (!) 157/91 (BP Location: Right arm, Patient Position: Sitting, Cuff size: Regular) Comment: took bp meds, new pt- told rn luna | Pulse 85 | Temp 36.3 C (97.4 F) (Oral) | Resp 16 | Wt 82.8 kg (182 lb 9.6 oz) | SpO2 97% Comment: ra | BMI 27.76 kg/m Wt Readings from Last 3 Encounters: 07/19/19 82.8 kg (182 lb 9.6 oz) 07/11/19 79.4 kg (175 lb) 06/18/19 82.1 kg (181 lb) Physical Exam Vitals signs and nursing note reviewed. Constitutional: General: He is not in acute distress. Appearance: Normal appearance. He is not toxic-appearing. HENT: Head: Normocephalic and atraumatic. Right Ear: External ear normal. Left Ear: External ear normal. Nose: Nose normal. Mouth/Throat: Mouth: Mucous membranes are moist. Pharynx: Oropharynx is clear. No oropharyngeal exudate. Eyes: Extraocular Movements: Extraocular movements intact. Conjunctiva/sclera: Conjunctivae normal. Pupils: Pupils are equal, round, and reactive to light. Neck: Musculoskeletal: Normal range of motion. No muscular tenderness. Cardiovascular: Heart sounds: Normal heart sounds, S1 normal and S2 normal. Pulmonary: Effort: Pulmonary effort is normal. Breath sounds: Normal breath sounds. Abdominal: General: There is no distension. Palpations: Abdomen is soft. Tenderness: There is no abdominal tenderness. Skin: General: Skin is warm and dry. Capillary Refill: Capillary refill takes less than 2 seconds. Neurological: General: No focal deficit present. Mental Status: He is alert and oriented to person, place, and time. Psychiatric: Mood and Affect: Mood normal. Behavior: Behavior normal. Musculoskeletal: Normal range of motion. General: No signs of injury. Recent Labs: Lab Results Component Value Date WBC 7.0 07/19/2019 HGB 13.9 07/19/2019 MCV 93.9 07/19/2019 HCT 42.3 07/19/2019 PLT 190 07/19/2019 Lab Results Component Value Date NEUTROABS 5.76 07/19/2019 NEUTOPHILPCT 82 07/19/2019 LYMPHOPCT 12 07/19/2019 MONOPCT 5 07/19/2019 EOSPCT 0 07/19/2019 Lab Results Component Value Date NA 138 07/19/2019 K 4.3 07/19/2019 CL 101 07/19/2019 BICARBONATE 26 07/19/2019 BUN 19 07/19/2019 CREATININE 1.02 07/19/2019 GLUCOSE 109 07/19/2019 Lab Results Component Value Date CALCIUM 9.1 07/19/2019 Lab Results Component Value Date PROT 7.4 07/19/2019 ALBUMIN 4.6 07/19/2019 AST 23 07/19/2019 ALT 21 07/19/2019 TBILI 0.7 07/19/2019 ALKPHOS 98 07/19/2019 Lab Results Component Value Date INR 1.06 07/11/2019 PROP 14.2 07/11/2019 PTTP 31.8 07/11/2019 No results found for: IGG, IGA, IGM Lab Results Component Value Date LDH 246 (H) 07/19/2019 No results found for: PCTRETICAUTO, ABSRETIC, IRF No results found for: WBJHPTQH34, FOLATE, FERRITIN, IRON, TIBC, UIBC, FESA No results found for: AFP, B2M, HCGTUT, BCRABLQUANT, CA153, XC3249, CGAGR, CA125 , CA199, CEA, ESTD, FSH, PSATOTAL, TG, CA153 Relevant Data Reviewed: MRI Brain 06/26/19: IMPRESSION: 1. No definite the enhancing lesion to suggest brain metastasis. 2. Focal hemosiderin deposition due to remote hemorrhage in the right occipital lobe. 3. No acute intracranial abnormality is seen. There are areas of nonspecific small vessel ischemic disease and generalized volume loss. MR angiogram with and without contrast of the abdomen and pelvis 06/26/19: FINDINGS: Angiogram. Mild atherosclerotic changes are present in the abdominal aorta. However, thereis no evidence of an abdominal aortic aneurysm. The proximal abdominal aorta at the level of the celiac axis and SMA measures 2.5 x 2.5 cm. At the level of the renal arteries it measures 2.1 cm. The mid abdominal aorta measures 2 cm. At the level of the bifurcation it measures 1.6 cm. The bilateral common iliac as well as internal and external iliac arteries are normal in course and caliber. Both renal arteries are normal in caliber without evidence of strictures or aneurysms. However, there is a mass measuring 2.6 x 2.9 x 2.6 cm which enhances in the arterial and early venous phase and appears to be arising from the right renal vein, near the right renal hilum. 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 It is displacing the distal portion of the renal artery inferiorly. However, the right renal artery remains widely patent. This aneurysm previously measured 3.3 x 2.9 x 2.5 cm. In addition there is a enhancing mass within the renal pelvis which extends exophytically from the posterior aspect of the right kidney. It measures 5.6 x 4 x 5.6 cm. This mass was present on the previous CT scan when it measured 6.1 x 3.6 x 4.6 cm. It may be slightly increased in size since previousstudy. If this is consistent with the patient's history of a renal cell carcinoma. There is no definite evidence of main renal vein thrombus.. A second mass versus a prominent lobulation of the primary lesion is present on the midpole of the right kidney measuring 2.5 x2.3 cm and demonstrates enhancement. A 1.5 cm hemorrhagic or proteinaceous cyst is present on the lower pole of the left kidney. It does not demonstrate enhancement. Too small to characterize area of abnormal signal are present in the upper pole of the left kidney. The pancreas is suboptimally visualized and is suboptimally evaluated but appears grossly unremarkable. A left adrenal masses present measuring 2.5 x 2.2 cm it is not significantly changed compared to theprevious study. It is not fully characterized on this study since there was no in and out of phase sequence provided. The visualized liver and spleen are unremarkable. There is mild prominence of the common bile duct. The pancreatic duct is not dilated. There is no evidence of significant abdominal or pelvic lymphadenopathy. The visualized stomach and small bowel loops are unremarkable. The visualized colon is unremarkable. Evaluation of the pelvis is limited since there was no axial images provided. The limited images of the pelvis demonstrates the urinary bladder to be unremarkable. The bony structures are unremarkable. IMPRESSION: No evidence of abdominal aortic aneurysm. [...] study as described above. CT chest 06/05/19: CHEST REPORT: LUNG: Multiple bilateral pulmonary nodules with fuels sales representative dominant 1.3 cm nodule at the suprahilar central aspect of the RIGHT upper lobe reference image 31. Biological Chemist 0.7 cm nodule at the anterior segment of the LEFT upper lobe reference image 36. Negative for pleural effusions. MEDIASTINUM / AXILLA: Extensive mediastinal and bilateral hilar lymphadenopathy. Biological Chemist 2.5 x 3.0 cm precarinal lymph node and 2.5 x 3.4 cm LEFT suprahilar lymph node. Biological Chemist 3.6 x 3.6 cm RIGHT infrahilar lymph node and 2.2 x 2.8 cm LEFT infrahilar lymph node. Negative for cardiomegaly or pericardial effusion. Mild atherosclerotic plaque at normal diameter abdominal aorta. BONES: No suspicious osseous lesions of the thorax evident. SOFT TISSUE: Unremarkable superficial soft tissues. CHEST IMPRESSION: Given the clinical context the lung nodules [...] BIOPSIES: RENAL CELL CARCINOMA (See Microscopic Description). ASSESSMENT AND PLAN: 1. Renal carcinoma, right Various treatment modalities, goals of therapy, and disease course of RCC described to the patient and family in detail. We provided him information on the COSMIC trial assess the utility of Cabozantonib added to Ipi/Nivo. The patientwas not interested in pursuing additional testing to assessing eligibility for the trial and it would require he transition from Coumadin to LMWH He has elected to proceed with first line Ipilimumab and Nivolumab for intermediate risk RCC We discussed the risks vs benefits of pursuing treatment with immunotherapy. Quality Measures: Pain Level: None Nutrition/Appetite: Good GI Side-Effects: None Anxiety/Depression: Denies Code Status / ACP: Not addressed Next Appointment: Return in about 13 days (around 08/01/2019) for infusion only with nivo ipi. Pending Orders/Studies: N/A Orders Placed This Encounter CBC and differential Comprehensive Metabolic Panel TSH Cortisol Lactate dehydrogenase Plan discussed with: Leah Reyna MD, Attending Brandon Titus DO Hematology/Oncology Office: [phone] Pager: [phone] signed by Brandon Titus DO at 07/20/2019 10: 19 AM ESTdocumented in this encounter Plan of Treatment Date Type Specialty Care Team Description 08/05/2019 Office Visit Hematology and Oncology Coco Mcdaniel PA [address] [place] [address] 08/30/2019 Office Visit Hematology and Oncology Leah Reyna MD [address] [place] [address] Health Maintenance Due Date Last Done Comments [...] Associated Comments Diagnosis CBC AND DIFFERENTIAL STAT 07/19/2019 1:56 Renal carcinoma, Results for this PM EST right procedure are in the results section. TSH Routine 07/19/2019 1:56 Renal carcinoma, Results for this PM EST right procedure are in the results section. LACTATE DEHYDROGENASE STAT 07/19/2019 1:56 Renal carcinoma, Results for this PM EST right procedure are in the results section. CORTISOL Routine 07/19/2019 1:56 Renal carcinoma, Results for this PM EST right procedure are in the results section. COMPREHENSIVE Routine 07/19/2019 1:56 Renal carcinoma, Results for this METABOLIC PANEL PM EST right procedure are in the results section. documented in this encounter Results Lactate dehydrogenase (07/19/2019 1:56 PM EST) Lactate dehydrogenase 246 (H) 122 - 225 U/L [facility] Pathology Specimen Plasma Performing Organization Address City/[facility] Phone Number [facility] [address] [place] [address] [facility] [address] [place] [address] Pathology Cortisol (07/19/2019 1:56 PM EST) Cortisol 1.3 ug/dL [facility] Comment: [facility] Pathology Ref range for 6-10 am samples: 6.0-18.4 ug/dL Ref range for 4-8 pm samples: 2.7-10.5 ug/dL Ref range not established for other times. Specimen Plasma Performing Organization Address [facility] Cent[facility]ode Phone Number [facility] [address] [place] [address] [facility] [address] [place] [address] Pathology TSH (07/19/2019 1:56 PM EST) TSH 1.800 0.270 - 4.200 u[IU]/mL [facility] Pathology Specimen Plasma Performing Organization Address City/[facility] Cent[facility]ode Phone Number [facility] [address] [place] [address] [facility] [address] [place] [address] Pathology Comprehensive Metabolic Panel (07/19/2019 1:56 PM EST) Albumin 4.6 3.5 - 5.2 g/dL [facility] Pathology Bilirubin, Total 0.7 <1.2 mg/dL [facility] Pathology Calcium 9.1 8.8 - 10.2 mg/dL [facility] Pathology Chloride 101 98 - 107 mmol/L [facility] Pathology Creatinine 1.02 0.70 - 1.20 [facility] mg/dL [facility] Pathology Glucose 109 70 - 140 mg/dL [facility] Pathology Alkaline Phosphatase 98 40 - 129 U/L [facility] Pathology Potassium 4.3 3.4 - 5.1 mmol/L [facility] Pathology Total Protein 7.4 6.4 - 8.3 g/dL [facility] Pathology Sodium 138 136 - 145 mmol/L [facility] AST/SGO 23 <40 U/L [facility] Pathology Blood Urea Nitrogen 19 8 - 23 mg/dL [facility] Pathology Osmolality, Adolfo 289 275 - 300 [facility] mosm/kg [facility] BUN/Cre Ratio 19 [facility]ology Bicarbonate 26 22 - 29 mmol/L [facility] Pathology ALT/SGP 21 <41 U/L [facility] Pathology Anion Gap 11 8 - 15 mmol/L [facility] Pathology A/G Ratio 1.6 [facility] Pathology GFR Non 68 >60 [facility] [place] 2008 CDK-EPI mL/min/1.73m2 [facility] Pathology GFR 79 >60 [facility] 2009 CKD-EPI mL/min/1.73m2 [facility] Pathology Specimen Plasma Performing Organization Address City/[facility] Phone Number [facility] [address] [place] [address] [phone] [facility] [address] [place] [address] Pathology CBC and differential (07/19/2019 1:56 PM EST) White Blood Cell 7.0 4 - 10 [facility] 10*3/uL [facility] Pathology Red Blood Cell 4.50 (L) 4.6 - 6.1 [facility] 10*6/uL [facility] Hemoglobin 13.9 13.5 - 18 [facility] g/dL [facility] Pathology Hematocrit 42.3 41 - 53 % [facility]ology Mean Cell Volume 93.9 80 - 96 fL [facility] Pathology Mean Cell Hemoglobin 30.8 27 - 33 pg [facility] Pathology Mean Cell Hgb Conc 32.8 32.0 - 36.0 [facility] g/dL [facility] Pathology Red Cell Dist Width 14.0 11.5 - 14.5 % [facility] Pathology Platelet Count 190 150 - 400 [facility] 10*3/uL [facility] Differential Type Automated Diff [facility]ology Neutrophil 82 % [facility] Lymphocyte 12 % [facility] Monocyte 5 % [facility]ology Eosinophil 0 % [facility] Basophil 1 % [facility] Abs Neutrophil 5.76 1.8 - 7.0 [facility] 10*3/uL [facility] Pathology Abs Lymphocyte 0.82 (L) 1.2 - 4.0 [facility] 10*3/uL [facility]ology Abs Monocyte 0.32 0 - 0.8 [facility] 10*3/uL [facility]ology Abs Eosinophil 0.03 0 - 0.5 [facility] 10*3/uL [facility]ology Abs Basophil 0.04 0 - 0.2 [facility] 10*3/uL [facility]ology Nucleated Red Blood 0 0 - 0 [facility] Cells /100{WBCs} [facility] Pathology Specimen EDTA Whole Blood Performing Organization Address City/State/Zipcode Phone Number [facility] [address] [place] [address] [facility] [address] [place] [address] Pathology documented in this encounter Visit Diagnoses Diagnosis Renal carcinoma, right - Primary documented in this encounter"
--- NOTE | 2019-09-12 11:47 | ED ---
Abdominal Pain/Male - HPI Summary HPI Summary: Patient is an 79 y/o M presenting to the ED for a chief complaint of right flank abdominal pain that began the night of 09/11/19. The abdominal pain has improved since 09/11/19. No aggravating or alleviating factors are reported. Patient denies fever, nausea, or vomiting. PMHx is significant for polymyalgia rheumatica and right kidney cancer for which he is receiving immunotherapy, having completed 2 sessions at [facility]. PSHx is significant for hernia repair, but any abdominal surgeries are denied. - History of Current Complaint Chief Complaint: EDAbdPain Stated Complaint: ABDOMINAL PAIN PER PT Time Seen by Provider: 09/12/19 11:38 Hx Obtained From: Patient Onset/Duration: Sudden Onset, Still Present Timing: Constant Severity Initially: Moderate Severity Currently: Moderate Pain Intensity: 6 Pain Scale Used: 0-10 Numeric Location: Flank - Right Radiates: No Aggravating Factor(s): Nothing Alleviating Factor(s): Nothing Associated Signs And Symptoms: Negative: Fever, Nausea, Vomiting - Allergies/Home Medications Allergies/Adverse Reactions: Allergies Allergy/AdvReac Type Severity Reaction Status Date / Time No Known Allergies Allergy Verified 09/12/19 11:32 Home Medications: Home Medications Digoxin TAB* [Lanoxin TAB*] 0.125 mg PO SUTUTHSA 09/12/19 [History Confirmed ] Digoxin TAB* [Lanoxin TAB*] 0.25 mg PO MOWEFR 09/12/19 [History Confirmed ] Furosemide TAB* [Lasix TAB*] 20 mg PO SUTUTHSA 09/12/19 [History Confirmed 09/12] Furosemide TAB* [Lasix TAB*] 30 mg PO MOWEFR 09/12/19 [History Confirmed ] Latanoprost 0.005%* [Xalatan 0.005%*] 1 drop BOTH EYES QPM 09/12/19 [History Confirmed 09/12/19] PMH/Surg Hx/FS Hx/Imm Hx Previously Healthy: Yes Cardiovascular History: Reports: Hx Atrial Fibrillation History: Reports: Other Problems/Disorders - Renal cancer Musculoskeletal History: Reports: Other Musculoskeletal History - Polymyalgia rheumatica Denies: Hx Rheumatoid Arthritis Sensory History: Denies: Hx Legally Blind, Hx Deafness Opthamlomology History: Denies: Hx Legally Blind EENT History: Denies: Hx Deafness - Cancer History Cancer Type, Location and Year: Right renal cancer Date and Location of Last Treatment: 2 sessions of immunotherapy as of 07/12/20 , [facility]. - Surgical History Surgical History: Yes Surgery Procedure, Year, and Place: HEMORRHOIDS Infectious Disease History: No Infectious Disease History: Denies: Traveled Outside the [place] in Last 30 Days - Family History Known Family History: Positive: Other - Parkinson's - father - Social History Occupation: Retired Lives: With Family Alcohol Use: Occasionally Hx Substance Use: No Substance Use Type: Reports: None Hx Tobacco Use: Yes Smoking Status (MU): Former Smoker Review of Systems Negative: Fever Positive: Abdominal Pain - Right flank. Negative: Vomiting, Nausea Positive: flank pain - Right All Other Systems Reviewed And Are Negative: Yes Physical Exam - Summary Physical Exam Summary: Appearance: The patient is well-nourished in no acute distress and in no acute pain. Skin: The skin is warm and dry, and skin color reflects adequate perfusion. HEENT: The head is normocephalic and atraumatic. The pupils are equal and reactive. The conjunctivae are clear and without drainage. Nares are patent and without drainage. Mouth reveals moist mucous membranes, and the throat is without erythema and exudate. The external ears are intact. The ear canals are patent and without drainage. The tympanic membranes are intact. Neck: The neck is supple with full range of motion and non-tender. There are no carotid bruits. There is no neck vein distension. Respiratory: Chest is non-tender. Lungs are clear to auscultation and breath sounds are symmetrical and equal. Cardiovascular: Heart is regular rate and rhythm. There is no murmur or rub auscultated. There is no peripheral edema and pulses are symmetrical and equal. Abdomen: The abdomen is soft. There are normal bowel sounds heard in all four quadrants and there is no organomegaly palpated. Mild tenderness in the right upper and right lower quadrant. Musculoskeletal: There is no back tenderness noted. Extremities are non-tender with full range of motion. There is good capillary refill. There is no peripheral edema or calf tenderness elicited. Neurological: Patient is alert and oriented to person, place and time. The patient has symmetrical motor strength in all four extremities. Cranial nerves are grossly intact. Deep tendon reflexes are symmetrical and equal in all four extremities. Psychiatric: The patient has an appropriate affect and does not exhibit any anxiety or depression. Triage Information Reviewed: Yes Vital Signs On Initial Exam: Initial Vitals Temp Pulse Resp BP Pulse Ox 97.3 F 103 20 124/68 97 09/12/19 11:28 09/12/19 11:28 09/12/19 11:28 09/12/19 11:28 09/12/19 11:28 Vital Signs Reviewed: Yes Procedures - Sedation Patient Received Moderate/Deep Sedation with Procedure: No Diagnostics - Vital Signs Vital Signs Temp Pulse Resp BP Pulse Ox 09/12/19 11:28 97.3 F 103 20 124/68 97 - Laboratory Result Diagrams: 09/12/19 11:58 09/12/19 11:58 Lab Statement: Any lab studies that have been ordered have been reviewed, and results considered in the medical decision making process. - CT Abdomen/Pelvis CT CT Interpretation Completed By: Radiologist Summary of CT Findings: Abdomen/Pelvis IMPRESSION: Right renal mass consistent with renal cell carcinoma. Enlargement of the right renal vein consistent with tumor thrombus. Increasing nodularity in the lung bases when compared to previous exam of June 05, 2019. Bilateral hilar adenopathy is noted. Both are consistent with metastatic disease that is progressive. Reviewed by Dr. Akhtar. Abdominal Pain Male Course/Dx - Course Course Of Treatment: Mr. Stack was found to have developed a thrombosis in his right renal vein. He is currently on Coumadin that he was taking prior to his diagnosis for 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 I spoke with his oncologist in [place] and Lovenox is a superior medication for venous thrombosis and cancer. She felt that he could be transitioned as an outpatient as well as his pain was controlled. He was instructed in subcutaneous injections here in the department and discharged with prescription for Lovenox and instructions to follow-up with oncology. - Diagnoses Provider Diagnoses: DVT (deep venous thrombosis) - Provider Notifications Discussed Care Of Patient With: Tim Saavedra - At 12:45, Dr. Tim Saavedra recommends the patients oncologist be consulted. At 14:24, I discussed the patients case with the patients oncologist at [facility]. Time Discussed With Above Provider: 12:45 Discharge ED - Sign-Out/Discharge Documenting (check all that apply): Patient Departure - Discharge - Discharge Plan Condition: Stable Disposition: HOME Prescriptions: Enoxaparin(*) [Lovenox(*)] 80 mg SUBCUT Q12HR #30 syringe Patient Education Materials: Enoxaparin (By injection) Referrals: Jason Hayes MD [Primary Care Provider] - Additional Instructions: RETURN TO THE EMERGENCY DEPARTMENT FOR CHANGING OR WORSENING SYMPTOMS. Follow up with your primary care physician and your oncologist in [place] in 2-3 days. Stop taking Warfarin. - Billing Disposition and Condition Condition: STABLE Disposition: Home - Attestation Statements Document Initiated by Scribe: Yes Documenting Scribe: Michelle Heredia Provider For Whom Scribe is Documenting (Include Credential): Rishi Akhtar MD Scribe Attestation: IMichelle, scribed for Rishi Akhtar MD on 09/12/19 at 1801. Scribe Documentation Reviewed: Yes Provider Attestation: The documentation as recorded by the Michelle gonzalez accurately reflects the service I personally performed and the decisions made by me, Rishi Akhtar MD Status of Scribe Document: Viewed
[2019-09-12 12:06] LABS: ABS Basophils 0.1 10^3/ul (0-0.2); ABS Eosinophils 0.3 10^3/ul (0-0.6); ABS Lymphocytes 0.8 10^3/ul (1.0-4.8); ABS Neutrophils 6.5 10^3/ul (1.5-7.7); Eosinophil % 3.5 %; Hematocrit 38 % (42-52); Hemoglobin 12.5 g/dL (14.0-18.0); Lymphocyte % 8.9 %; Mean Corpuscular HGB Conc 33 g/dL (31-36); Mean Corpuscular Hemoglobin 29 pg (27-31); Mean Corpuscular Volume 88 fL (80-94); Mean Platelet Volume 7.4 fL (7.4-10.4); Nucleated Red Blood Cells % 0.1; Platelet Count 200 10^3/uL (150-450); Red Blood Count 4.25 10^6 /uL (4.18-5.48); Red Cell Distribution Width 15 % (10-15); White Blood Count 8.6 10^3/uL (3.5-10.8)
[2019-09-12 12:38] LABS: Albumin 3.8 g/dL (3.2-5.2); Albumin/Globulin Ratio 1.3 (1-3); BUN/Creatinine Ratio 20.4 (8-20); C Reactive Protein 112.18 mg/L (<8.01); Calcium 8.5 mg/dL (8.6-10.3); EGFR Non-African American 73.6 (>60); Potassium 4.2 mmol/L (3.5-5.0); Total Bilirubin 0.9 mg/dL (0.2-1.0); Total Protein 6.8 g/dL (6.4-8.9)
[2019-09-12 13:00] LABS: INR 1.9 (0.82-1.09)
[2019-09-12 13:42] LABS: Urine Appearance Clear; Urine Bilirubin Negative (Negative); Urine Blood Negative (Negative); Urine Color Yellow; Urine Glucose Negative (Negative); Urine Ketones Negative (Negative); Urine Nitrite Negative (Negative); Urine Protein Negative (Negative); Urine Specific Gravity 1.008 (1.010-1.030); Urine Urobilinogen Negative (Negative)
[2019-09-12] MEDS ORDERED: Enoxaparin(*) 80 MG/0.8 ML SYR SUBCUT SCH (15:00)
[2019-09-12 16:18] VITALS: BP 129/74
== END 2019-09-12 16:19 | disposition home or self-care (01) ==
LOC: ED 11:20
DX: I82.3 Embolism and thrombosis of renal vein (principal); R10.84 Generalized abdominal pain; I48.91 Unspecified atrial fibrillation; Z79.899 Other long term (current) drug therapy; Z85.048 Personal history of other malignant neoplasm of rectum, rectosigmoid junction, and anus; Z87.891 Personal history of nicotine dependence
CPT/HCPCS: 36415; 74176; 80053; 81003; 83605; 83690; 85025; 85610; 86140; 96372; 99283; J1650